=== PATIENT | female | born 1940 | race Caucasian/White ===

== ENCOUNTER 2024-08-14 16:29 | Emergency (ER) | payer MEDICARE ==
[~2024-08-14] VITALS: Ht 160 cm; Wt 63.6 kg
[2024-08-14] MEDS: HYDROcodone/acetaminophen 5mg/325mg tablet PO ONE (17:29)
[2024-08-14 17:32] VITALS: BP 123/78; PULSE 82; RESP 14; TEMP 97.6; O2SAT 99
[2024-08-14] MEDS ORDERED: HYDR-3965 PO (17:38)
== END 2024-08-14 17:38 | disposition home or self-care (01) ==
LOC: ER 16:30
DX: S42.022A Displaced fracture of shaft of left clavicle, initial encounter for closed fracture (principal); Z88.2 Allergy status to sulfonamides; W18.39XA Other fall on same level, initial encounter; Y93.89 Activity, other specified; Y92.89 Other specified places as the place of occurrence of the external cause; Y99.8 Other external cause status
CPT/HCPCS: 73030; 99284; A4565

== ENCOUNTER 2024-09-26 14:39 | Inpatient (IN) | payer MEDICARE, OTHER ==
[~2024-09-26] VITALS: Ht 160 cm; Wt 63.7 kg
[2024-09-26 15:33] LABS: BASOPHILS # (AUTO) 0.1 X10'3 (0-0.2); BASOPHILS % (AUTO) 0.5 % (0-1); EOSINOPHILS # (AUTO) 0.2 X10'3 (0-0.9); EOSINOPHILS % (AUTO) 0.9 % (0-6); HEMATOCRIT 30.2 % (35.0-45.0); HEMOGLOBIN 10.1 g/dl (12.0-16.0); LYMPHOCYTES # (AUTO) 2.3 X10'3 (1.1-4.8); LYMPHOCYTES % (AUTO) 13.9 % (21-51); MEAN CORPUSCULAR HEMOGLOBIN 31.7 PG (27.0-31.0); MEAN CORPUSCULAR HGB CONC 33.5 g/dL (33.0-36.5); MEAN CORPUSCULAR VOLUME 94.6 FL (78-98); MEAN PLATELET VOLUME 7.2 FL (7.4-10.4); MONOCYTES # (AUTO) 0.9 X10'3 (0-0.9); MONOCYTES % (AUTO) 5.4 % (2-12); NEUTROPHILS # (AUTO) 13.3 X10'3 (1.8-7.7); NEUTROPHILS % (AUTO) 79.3 % (42-75); PLATELET COUNT 515 X10'3 (140-440); RED CELL DISTRIBUTION WIDTH 16.6 % (11.5-14.5); WHITE BLOOD COUNT 16.8 X10'3 (4.5-11.0)
[2024-09-26 15:50] LABS: ALBUMIN 2.9 G/DL (3.4-5.0); ANION GAP 8 (8-16); BLOOD UREA NITROGEN 17 MG/DL (7-18); BUN/CREATININE RATIO 17.3 (10.0-20.0); CALCIUM 9.6 MG/DL (8.5-10.1); CHLORIDE 100 MMOL/L (99-107); CREATININE 0.98 MG/DL (0.40-0.90); GLUCOSE 96 MG/DL (70-104); SODIUM 136 MMOL/L (135-145); TOTAL CARBON DIOXIDE 27.7 MMOL/L (24-32); eCRCL 35 ML/MIN; eGFR 54 ML/MIN
[2024-09-26 16:08] LABS: POTASSIUM 2.8 MMOL/L (3.5-5.1)
[2024-09-26] MEDS: POTASSIUM CHLORIDE 20 MEQ/15 ML oral solution PO STA (17:25)
[2024-09-26 19:40] LABS: BILIRUBIN,URINE NEGATIVE (Neg); CLARITY,URINE CLEAR (Clear); COLOR,URINE YELLOW (Yellow); GLUCOSE, URINE NEGATIVE (Neg); KETONES,URINE NEGATIVE (Neg); LEUKOCYTE ESTERASE ,URINE NEGATIVE (Neg); NITRITES, URINE NEGATIVE (Neg); OCCULT BLOOD,URINE NEGATIVE (Neg); PROTEIN,URINE NEGATIVE (Neg); UROBILINOGEN,URINE 0.2 E.U/dL (0.2-1.0)
[2024-09-26 20:00] LABS: UA COLLECTION TYPE CLN CATCH MIDSTREAM
[2024-09-26] MEDS ORDERED: iohexol 300mg/ml 100ml inj. ONE (21:08)
[2024-09-26] MEDS: normal saline 1000ML IV soln IV ONE (21:34)
[2024-09-26] MEDS: vancomycin/NS 1 GM ADD-VANTAGE 250 ML IV ONE (21:34)
[2024-09-26 22:10] LABS: ALANINE AMINOTRANSFERASE 22 U/L (12-78); ALBUMIN 2.3 G/DL (3.4-5.0); ALBUMIN/GLOBULIN RATIO 0.6 (1.1-1.5); ALKALINE PHOSPHATASE 133 IU/L (46-116); ASPARTATE AMINO TRANSFERASE 18 U/L (10-37); BILIRUBIN,DIRECT 0.2 MG/DL (0-0.3); BILIRUBIN,TOTAL 0.6 MG/DL (0.1-1.0); THYROID STIMULATING HORMONE 32.45 ulU/ml (0.34-4.50)
[2024-09-26] MEDS ORDERED: magnesium sulf-water 2g/50mL 50 ML IV PRN (22:25)
[2024-09-26] MEDS ORDERED: magnesium hydroxide 30ml (MOM) UD suspension PO PRN (22:25)
[2024-09-26] MEDS ORDERED: ondansetron/PF 4mg/2ml inj IV PRN (22:25)
[2024-09-26] MEDS ORDERED: morphine 2 MG/ML inj. syringe IV PRN (22:25)
[2024-09-26] MEDS ORDERED: acetaminophen 325mg tablet PO PRN (22:25)
[2024-09-26] MEDS ORDERED: magnesium Cl slow-release 64mg tablet PO PRN (22:25)
[2024-09-26] MEDS ORDERED: potassium Cl 40MEQ/1/2NS 520ml 520 ML IV PRN (22:25)
[2024-09-26] MEDS ORDERED: magnesium sulf-water 4G/100mL 100 ML IV PRN (22:25)
[2024-09-26] MEDS ORDERED: mag hydrox/Alum hydrox/simeth 30ml oral suspension PO PRN (22:25)
[2024-09-26] MEDS: potassium CL 10mEq/100ml bag 100 ML IV ONE (22:31)
[2024-09-27] VITALS (9 sets, daily range): BP systolic 127–156; BP diastolic 63–75; PULSE 70–89; RESP 12–22; TEMP 97.2–99; O2SAT 97–98
[2024-09-27] MEDS: normal saline 1000ml 1,000 ML IV SCH (00:08)
[2024-09-27 02:13] LABS: BASOPHILS % (AUTO) 0.3 % (0-1); EOSINOPHILS # (AUTO) 0.2 X10'3 (0-0.9); EOSINOPHILS % (AUTO) 1.9 % (0-6); HEMATOCRIT 30.8 % (35.0-45.0); HEMOGLOBIN 10.4 g/dl (12.0-16.0); LYMPHOCYTES # (AUTO) 2.3 X10'3 (1.1-4.8); MEAN CORPUSCULAR HEMOGLOBIN 31.8 PG (27.0-31.0); MEAN CORPUSCULAR HGB CONC 33.8 g/dL (33.0-36.5); MEAN CORPUSCULAR VOLUME 93.9 FL (78-98); MEAN PLATELET VOLUME 6.8 FL (7.4-10.4); MONOCYTES # (AUTO) 0.8 X10'3 (0-0.9); NEUTROPHILS # (AUTO) 8.2 X10'3 (1.8-7.7); NEUTROPHILS % (AUTO) 70.8 % (42-75); PLATELET COUNT 418 X10'3 (140-440); RED BLOOD COUNT 3.28 X10'6 (4.20-5.60); RED CELL DISTRIBUTION WIDTH 16.6 % (11.5-14.5); WHITE BLOOD COUNT 11.6 X10'3 (4.5-11.0)
[2024-09-27 02:31] LABS: % IRON SATURATION 12 % (11-46); IRON 32 UG/DL (49-151); TOTAL IRON BINDING CAPACITY 267 UG/DL (259-388)
[2024-09-27 02:37] LABS: ALANINE AMINOTRANSFERASE 23 U/L (12-78); ALBUMIN 2.3 G/DL (3.4-5.0); ALBUMIN/GLOBULIN RATIO 0.6 (1.1-1.5); ALKALINE PHOSPHATASE 133 IU/L (46-116); ANION GAP 8 (8-16); ASPARTATE AMINO TRANSFERASE 15 U/L (10-37); BILIRUBIN,TOTAL 0.6 MG/DL (0.1-1.0); BLOOD UREA NITROGEN 11 MG/DL (7-18); BUN/CREATININE RATIO 14.5 (10.0-20.0); CALCIUM 7.7 MG/DL (8.5-10.1); CHLORIDE 101 MMOL/L (99-107); CREATININE 0.76 MG/DL (0.40-0.90); FREE T4 (FREE THYROXINE) 0.39 NG/DL (0.73-1.40); GLUCOSE 87 MG/DL (70-104); MAGNESIUM 1.6 MG/DL (1.5-2.4); SODIUM 136 MMOL/L (135-145); TOTAL CARBON DIOXIDE 26.7 MMOL/L (24-32); eCRCL 45 ML/MIN; eGFR 72 ML/MIN
[2024-09-27 02:42] LABS: POTASSIUM 2.8 MMOL/L (3.5-5.1)
[2024-09-27] MEDS: potassium Cl 20 mEq SR tablet PO PRN (02:59)
[2024-09-27] MEDS: acetaminophen 325mg tablet PO PRN (03:08)
[2024-09-27] MEDS: VANCOMYCIN/WATER FOR INJ (PEG) 1.5GM/300 ML IVPB IV ONE (03:29)
[2024-09-27] MEDS ORDERED: NO HOME MEDS (06:51)
[2024-09-27] MEDS: K and/or MAG REPLACEMENT MC SCH (08:00)
[2024-09-27] MEDS: docusate sod 100mg capsule PO SCH (08:38)
[2024-09-27] MEDS: levoTHYROXINE 25mcg tablet PO SCH (08:38)
[2024-09-27] MEDS: heparin, porcine 5000 units/ml vial SQ SCH (08:39)
[2024-09-27] MEDS: CefTRIAXone/D5W-Rocephin 1gm 50 ML IV ONE (09:57)
[2024-09-28] VITALS (7 sets, daily range): BP systolic 134–164; BP diastolic 71–81; PULSE 72–91; RESP 14–23; TEMP 97–97.9; O2SAT 95–97
[2024-09-28] MEDS: amLODIPine 5mg tablet PO ONE (02:52)
[2024-09-28] MEDS: VANCOMYCIN 1GM 200ML H20 (PEG) 200 ML IV SCH (02:53)
[2024-09-28] MEDS ORDERED: vancomycin/NS 1 GM ADD-VANTAGE 250 ML IV SCH (03:30)
[2024-09-28 07:43] LABS: BASOPHILS # (AUTO) 0.1 X10'3 (0-0.2); BASOPHILS % (AUTO) 0.7 % (0-1); EOSINOPHILS # (AUTO) 0.2 X10'3 (0-0.9); EOSINOPHILS % (AUTO) 2.5 % (0-6); HEMOGLOBIN 11.2 g/dl (12.0-16.0); LYMPHOCYTES # (AUTO) 1.8 X10'3 (1.1-4.8); LYMPHOCYTES % (AUTO) 18.8 % (21-51); MEAN CORPUSCULAR HEMOGLOBIN 32.1 PG (27.0-31.0); MEAN CORPUSCULAR VOLUME 94.5 FL (78-98); MEAN PLATELET VOLUME 7.5 FL (7.4-10.4); MONOCYTES # (AUTO) 0.8 X10'3 (0-0.9); MONOCYTES % (AUTO) 8.4 % (2-12); NEUTROPHILS # (AUTO) 6.8 X10'3 (1.8-7.7); NEUTROPHILS % (AUTO) 69.6 % (42-75); PLATELET COUNT 451 X10'3 (140-440); RED BLOOD COUNT 3.49 X10'6 (4.20-5.60); RED CELL DISTRIBUTION WIDTH 16.5 % (11.5-14.5); WHITE BLOOD COUNT 9.8 X10'3 (4.5-11.0)
[2024-09-28 07:56] LABS: ALANINE AMINOTRANSFERASE 21 U/L (12-78); ALBUMIN 2.3 G/DL (3.4-5.0); ALBUMIN/GLOBULIN RATIO 0.6 (1.1-1.5); ALKALINE PHOSPHATASE 129 IU/L (46-116); ANION GAP 8 (8-16); ASPARTATE AMINO TRANSFERASE 16 U/L (10-37); BILIRUBIN,TOTAL 0.5 MG/DL (0.1-1.0); BLOOD UREA NITROGEN 5 MG/DL (7-18); BUN/CREATININE RATIO 9.3 (10.0-20.0); C-REACTIVE PROTEIN 10.14 MG/DL (0.0-0.5); CALCIUM 8.2 MG/DL (8.5-10.1); CHLORIDE 99 MMOL/L (99-107); CREATININE 0.54 MG/DL (0.40-0.90); GLUCOSE 81 MG/DL (70-104); MAGNESIUM 1.6 MG/DL (1.5-2.4); POTASSIUM 3.4 MMOL/L (3.5-5.1); SODIUM 132 MMOL/L (135-145); TOTAL CARBON DIOXIDE 24.9 MMOL/L (24-32); TOTAL PROTEIN 6.2 G/DL (6.4-8.2); eCRCL 63 ML/MIN; eGFR > 90 ML/MIN
[2024-09-28] MEDS: potassium Cl 20 mEq SR tablet PO PRN (08:51)
[2024-09-28] MEDS: amLODIPine 5mg tablet PO SCH (08:51)
[2024-09-28] MEDS: CefTRIAXone/D5W-Rocephin 1gm 50 ML IV SCH (09:05)
[2024-09-28] MEDS: lactose-reduced food (Ensure Enlive) - 237ml bottle PO SCH (18:08)
[2024-09-29 02:00] VITALS: BP 147/77; PULSE 64; RESP 16; TEMP 97; O2SAT 99
[2024-09-29] MEDS: VANCOMYCIN LEVEL IV ONE (02:52)
[2024-09-29 03:08] LABS: ALANINE AMINOTRANSFERASE 18 U/L (12-78); ALBUMIN 2.3 G/DL (3.4-5.0); ALBUMIN/GLOBULIN RATIO 0.6 (1.1-1.5); ALKALINE PHOSPHATASE 124 IU/L (46-116); ANION GAP 8 (8-16); ASPARTATE AMINO TRANSFERASE 16 U/L (10-37); BILIRUBIN,TOTAL 0.4 MG/DL (0.1-1.0); BLOOD UREA NITROGEN 4 MG/DL (7-18); BUN/CREATININE RATIO 7.8 (10.0-20.0); CALCIUM 8.3 MG/DL (8.5-10.1); CHLORIDE 100 MMOL/L (99-107); CREATININE 0.51 MG/DL (0.40-0.90); GLUCOSE 92 MG/DL (70-104); MAGNESIUM 1.7 MG/DL (1.5-2.4); POTASSIUM 3.9 MMOL/L (3.5-5.1); SODIUM 132 MMOL/L (135-145); TOTAL CARBON DIOXIDE 24.3 MMOL/L (24-32); TOTAL PROTEIN 6.3 G/DL (6.4-8.2); VANCOMYCIN,TROUGH 8.6 ug/mL (10.0-20.0); eCRCL 67 ML/MIN; eGFR > 90 ML/MIN
[2024-09-29 06:00] VITALS: BP 147/66; PULSE 70; RESP 19; TEMP 97.6; O2SAT 98
[2024-09-29 07:28] LABS: BASOPHILS # (AUTO) 0.1 X10'3 (0-0.2); BASOPHILS % (AUTO) 0.5 % (0-1); EOSINOPHILS # (AUTO) 0.3 X10'3 (0-0.9); EOSINOPHILS % (AUTO) 2.8 % (0-6); HEMATOCRIT 33.2 % (35.0-45.0); HEMOGLOBIN 11.5 g/dl (12.0-16.0); LYMPHOCYTES # (AUTO) 2.2 X10'3 (1.1-4.8); LYMPHOCYTES % (AUTO) 20.5 % (21-51); MEAN CORPUSCULAR HEMOGLOBIN 32.5 PG (27.0-31.0); MEAN CORPUSCULAR HGB CONC 34.8 g/dL (33.0-36.5); MEAN CORPUSCULAR VOLUME 93.3 FL (78-98); MEAN PLATELET VOLUME 7.4 FL (7.4-10.4); MONOCYTES % (AUTO) 9.4 % (2-12); NEUTROPHILS # (AUTO) 7.2 X10'3 (1.8-7.7); NEUTROPHILS % (AUTO) 66.8 % (42-75); PLATELET COUNT 475 X10'3 (140-440); RED BLOOD COUNT 3.56 X10'6 (4.20-5.60); RED CELL DISTRIBUTION WIDTH 16.5 % (11.5-14.5); WHITE BLOOD COUNT 10.8 X10'3 (4.5-11.0)
[2024-09-29 10:00] VITALS: BP 99/72; PULSE 88; RESP 16; TEMP 98.8; O2SAT 98
[2024-09-30] MEDS ORDERED: VANCOMYCIN/WATER FOR INJ (PEG) 1.5GM/300 ML IVPB IV SCH (03:00)
[2024-10-03] MEDS ORDERED: VANCOMYCIN LEVEL IV ONE (02:30)
== END 2024-09-29 16:18 | DRG 862 ==
LOC: ER 14:40 → ED HOLD 22:27 → PCU 3S 09-27 02:35
PROVIDERS: ADMIT Internal Medicine Pulmonary Disease; ATTEND Family Medicine
PROC: BW241ZZ Computerized Tomography (CT Scan) of Chest and Abdomen using Low Osmolar Contrast (ICD-10-PCS; principal; 2024-09-26)
DX: T81.41XA Infection following a procedure, superficial incisional surgical site, initial encounter (principal); A41.9 Sepsis, unspecified organism; G93.41 Metabolic encephalopathy; L03.114 Cellulitis of left upper limb; E87.6 Hypokalemia; D64.9 Anemia, unspecified; Y83.8 Other surgical procedures as the cause of abnormal reaction of the patient, or of later complication, without mention of misadventure at the time of the procedure; X58.XXXA Exposure to other specified factors, initial encounter; E03.2 Hypothyroidism due to medicaments and other exogenous substances; T50.995A Adverse effect of other drugs, medicaments and biological substances, initial encounter; Z88.2 Allergy status to sulfonamides; Y92.89 Other specified places as the place of occurrence of the external cause; Z87.891 Personal history of nicotine dependence
CPT/HCPCS: 36415; 70450; 71045; 71260; 80048; 80053; 80076; 80202; 81003; 83540; 83550; 83605; 83735; 84132; 84145; 84439; 84443; 84466; 85025; 86140; 87040; 87081; 93005; 97110; 97116; 97161; 97530; 99285; A6213; A6449; G0378; J0696; J1644; J3370; J3372; J3480; J7030; Q9967

== ENCOUNTER 2025-04-16 16:10 | Emergency (ER) | payer MEDICARE, OTHER ==
[~2025-04-16] VITALS: Ht 160 cm; Wt 52.0 kg
[~2025-04-16 16:10] MED LIST: NO HOME MEDS
--- NOTE | 2025-04-16 17:04 | RADIOLOGY REPORT ---
CLINICAL INDICATION: Shoulder Pain TECHNIQUE: DI SHOULDER, COMPLETE (MIN 2 VWS) Comparison: DI SHOULDER, COMPLETE (MIN 2 VWS) on DOS: 08/14/24 FINDINGS/IMPRESSION: Displaced fracture deformity of the left humeral head. Chronic appearing left 8th lateral rib fracture Surgical fixation hardware seen in the left clavicle
--- NOTE | 2025-04-16 17:11 | RADIOLOGY REPORT ---
EXAM: DI HIP UNILATERAL 2 VIEWS REASON FOR EXAM: HIP PAIN TECHNIQUE: AP pelvis and AP and frogleg lateral views of the left hip are submitted for review. COMPARISON: None FINDINGS: There is no acute fracture or dislocation. There is moderate narrowing of the left hip join t with osteophyte formation. Phleboliths project over the pelvis. The soft tissues are otherwise unre markable. IMPRESSION: No radiographic evidence of fracture or dislocation.
--- NOTE | 2025-04-16 17:28 | RADIOLOGY REPORT ---
EXAM: CT CT CERVICAL SPINE INDICATION: fall EXAM DATE: 04/16/2025 05:05 PM COMPARISON: CT CT CERVICAL SPINE on DOS: 02/24/25, CT CT HEAD on DOS: 02/24/25, CT CT HEAD on DOS: 09/27 TECHNIQUE: Multiple axial CT images of the cervical spine were obtained using bone algorithm. Axial a nd coronal reformatting was done. Bone and soft tissue windows were reviewed. Radiation Dose Information: CT Dose: CTDI volume is 17.3 mGy. Dose-length product is 360 mGy*cm FINDINGS: The cervical alignment is intact. No acute cervical spine fracture is identified. The vertebral body heights are intact. No suspicious osseous lesions are identified. Severe degenerative changes throughout the cervical spine. There is no prevertebral soft tissue swelling. IMPRESSION: 1. No evidence of acute cervical spine fracture or traumatic malalignment. 2. Severe degenerative changes throughout the cervical spine All CT scans at this medical facility are performed using dose modulation techniques as appropriate t o a performed exam including the following: Automated exposure control was utilized; adjustment of th e MA and/or KV according to patient size; and use of iterative reconstruction technique.
--- NOTE | 2025-04-16 17:31 | RADIOLOGY REPORT ---
CT CT HEAD INDICATION: fall COMPARISON: CT CT CERVICAL SPINE on DOS: 02/24/25, CT CT HEAD on DOS: 02/24/25, CT CT HEAD on DOS: 09/27 TECHNIQUE: CT of the head without intravenous contrast. RADIATION DOSE: CTDIvol: 55 mGy, DLP: 1007 mGy*cm FINDINGS: There is no evidence of acute intracranial hemorrhage, extra-axial collection, mass effect, midline s hift, herniation or hydrocephalus. The ventricles, sulci and cisterns are age appropriate. The lira -white differentiation is intact. Chronic microvascular ischemic changes The visualized paranasal si nuses and mastoid air cells are clear. The surrounding soft tissues and osseous structures are unrem arkable. IMPRESSION: 1. No evidence of acute intracranial hemorrhage, mass effect or hydrocephalus. 2. Chronic microvascular ischemic changes.
--- NOTE | 2025-04-16 18:40 | Physician Documentation ---
History of Present Illness ~ Chief Complaint: Mechanical Fall Stated Complaint: FALL Time Seen by MD: 18:01 Primary Medical Doctor: none Mode of Arrival: EMS HPI 84 year old female presents after an unwitnessed fall at a SNF, complaining of L shoulder and L hip pain. She recently fall and sustained a L clavicle fracture as well which was ORIF'ed. Unknown LOC, patient has dementia and can't quite remember what happened. Family member at bedside. Patient denies shortness of breath, N/V/D, abdominal pain. Tetanus within 5 Years?: Yes Medication Reconciliation Allergies: Coded Allergies: Sulfa (Sulfonamide Antibiotics) (Verified Allergy, Intermediate, RASH, 04/16/25) Miscellaneous Medications Home Med List (No Home Medications), (Reported) Past Medical History Past Medical History: Thyroid (unspecified) Past Surgical History: cancer surgery Other Past Surgical History: clavicle surgery Alcohol Use: None Drug Use: none Lives with: Other Lives In: Home Review of Systems All Other Systems at this time: Reviewed and Negative Physical Exam Vital Signs: RN Vital Signs have been reviewed: Yes, Temperature: 97.9, Source: Oral, Heart Rate: 57, Respiratory Rate: 16, BP: 131/52, Pulse Oximetry: 99, Weight: 52.000 Oxygen Flow Rate: 0 Physical Exam HEENT: PERRL, moist oral mucosa, EOMI Pulmonary: No respiratory distress Cardiac: RRR, no murmur, rub or gallop MSK: no deformity; L shoulder +TTP, L hip +TTP over greater trochanter Skin: w/d/i, no rash Neuro: alert, nonfocal Psych: normal affect Progress Results/Orders Results/Orders Vital Signs 04/16/25 04/16/25 04/16/25 04/16/25 16:16 16:29 17:16 18:15 Temp 97.9 Pulse 54 54 60 Resp 18 18 18 B/P (MAP) 124/50 132/55 (80) 131/52 (78) Pulse Ox 97 100 99 O2 Flow Rate 0 0 0 04/16/25 18:35 Temp 97.9 Pulse 57 Resp 16 B/P (MAP) 131/52 (78) Pulse Ox 99 O2 Flow Rate 0 EKG/XRAY/CT/US/VASC/MRI Chest X-Ray : Interpreted By: self Views: 1 VIEW Indication: trauma Lungs: normal Mediastinum: normal Ribs/Bones: normal Abdomen: normal Impression: no acute disease CT : Interpreted By: self CT: head Impression No mass, shift, bleed Medical Decision Making Additional info obtained from: family Findings 84 year old female s/p ground level fall. Workup was significant for L superior humerus fracture, remainder of workup unremarkable. Will road test, place in sling, return to facility. Differential Dx:Considerations: Include: Closed head injury, Fracture(s), Pulmonary contusion, Contusion(s), Hematoma(s), Encephalopathy Departure Disposition: 01 HOME / SELF CARE / HOMELESS Impression: Primary Impression: Fracture of humerus Condition: Stable Discharge Instructions: Humerus Fracture Treated With Immobilization Referrals: NO PRIMARY CARE PROVIDER (PCP) Education Educated: Patient Educated regarding: diagnosis, treatment, prognosis, need for follow up Signature Scribe Signature: . Attestation: . BURT VELEZ MD Apr 16, 2025 18:40
[2025-04-16 19:32] VITALS: BP 119/57; PULSE 59; RESP 16; TEMP 97.7; O2SAT 100
== END 2025-04-16 19:36 | disposition home or self-care (01) ==
LOC: ER 16:10
DX: S42.302A Unspecified fracture of shaft of humerus, left arm, initial encounter for closed fracture (principal); R51.9 Headache, unspecified; M25.552 Pain in left hip; W19.XXXA Unspecified fall, initial encounter; Y93.89 Activity, other specified; Y92.89 Other specified places as the place of occurrence of the external cause; Y99.8 Other external cause status
CPT/HCPCS: 70450; 72125; 73030; 73502; 99285; A4565; A4615; J7030